=== PATIENT | male | born 1990 | race Caucasian/White ===

== ENCOUNTER 2017-07-08 11:31 | Emergency (ER) | payer OTHER ==
--- NOTE | 2017-07-08 12:36 | EDPHY ---
General Time Seen by Provider: 07/08/17 12:21 Narrative: CHIEF COMPLAINT: Right pinky injury HISTORY OF PRESENT ILLNESS: Patient complains of pain in the right 5th finger after injuring at work. He says that he caught the finger while working and bent awkwardly. He felt a sudden onset of pain at the base of the middle phalanx on the right 5th finger. No numbness, tingling or weakness. No laceration or puncture. No difficulty moving the hand. Minimally painful at rest. Mild with movement palpation. No other associated complaints or modifying factors. ESTABLISHED ORTHOPEDIST: None REVIEW OF SYSTEMS: Ten systems reviewed and are negative unless otherwise noted in the HPI PAST MEDICAL HISTORY: Uncomplicated PAST SURGICAL HISTORY: No surgical history SOCIAL HISTORY: Nonsmoker. Lives And works here independently. FAMILY HISTORY: Noncontributory EXAMINATION General Appearance: Alert, no distress Cardiovascular: Symmetric radial pulses 2+. Brisk cap refill in all fingers of the right hand. Neurological: A&O, sensory symmetric, interossei strength symmetric Skin: Warm and dry, no rash. No petechiae or purpura. No ecchymosis. Extremities: Mild tenderness of the right 5th finger over the middle phalanx. Full flexion extension without difficulty. No deformity or laxity in the right little finger. Psychiatric: Mood and affect normal DIFFERENTIAL DIAGNOSES: Including but not limited to sprain, strain, fracture, dislocation, subluxation MDM: 12:35 p.m. Equivocal chip fracture on the right 5th finger, base of the middle phalanx. He is neurovascular intact distally. There is no injury elsewhere. This is a closed injury. He will be placed in a finger splint. He will be discharged home with ice, elevation and anti-inflammatories instructions He will need to contact his [facility] for follow-up. I would like him to follow up with hand surgeon for definitive care. ED precautions discussed. Comfortable with this plan. Discharged home stable condition. SUPERVISION: This patient was independently evaluated without direct involvement of or examination by the attending physician. ED Precautions: Worsening pain. Erythema, edema, cyanosis, pallor, paresthesia or anesthesia. - History Smoking Status: Never smoked - Objective Vital Signs: Initial Vital Signs Temperature (C) 98.2 F 07/08/17 11:35 Heart Rate 65 07/08/17 11:35 Respiratory Rate 20 07/08/17 11:35 Blood Pressure 122/76 H 07/08/17 11:35 O2 Sat (%) 96 07/08/17 11:35 O2 Delivery Mode Room Air Allergies/Adverse Reactions: ANESTHESIA Allergy (Uncoded 07/08/17 11:34) Home Medications: Medication Instructions Recorded NK [No Known Home Meds] 07/08/17 Departure - Departure Disposition: Home, Routine, Self-Care Clinical Impression: Closed fracture of middle phalanx of right little finger Qualifiers: Encounter type: initial encounter Fracture alignment: nondisplaced Qualified Code(s): S62.656A - Nondisplaced fracture of medial phalanx of right little finger, initial encounter for closed fracture Condition: Good Instructions: Finger Fracture (ED) Additional Instructions: 1. Keep your finger splint in place until seen by hand surgeon for definitive care 2. [facility] 3. Ice, elevation and [id number] anti-inflammatories as needed Referrals: DR GABY [Other] - As per Instructions Avinash Hall MD [Medical Doctor] - As per Instructions Stand Alone Forms: Work Comp Follow Up
[2017-07-08 13:01] VITALS: BP 141/80
== END 2017-07-08 13:00 | disposition home or self-care (01) ==
DX: S62.656A Nondisplaced fracture of middle phalanx of right little finger, initial encounter for closed fracture (principal); W23.1XXA Caught, crushed, jammed, or pinched between stationary objects, initial encounter; Y92.69 Other specified industrial and construction area as the place of occurrence of the external cause; Y99.8 Other external cause status; Y93.89 Activity, other specified
CPT/HCPCS: L3925